=== PATIENT | female | born 1955 | race Two or more races ===

== ENCOUNTER 2019-07-24 09:00 | Outpatient (CLI) | payer OTHER | END 2019-07-24 09:03 | disposition home or self-care (01) | LOC: RAD 09:00 | DX: M79.602 Pain in left arm (principal) ==

== ENCOUNTER → 2019-07-27 | Emergency (ER) | payer OTHER | END | disposition left against medical advice (07) | LOC: ER 15:37 | DX: Z53.20 Procedure and treatment not carried out because of patient's decision for unspecified reasons (principal) ==